=== PATIENT | male | born 1985 | race Caucasian/White ===

== ENCOUNTER 2020-11-04 03:10 | Emergency (ER) | payer OTHER ==
[~2020-11-04 03:10] MED LIST: COLCHICINE 0.60.6 MG PO; MEDROL4 MG PO
[2020-11-04 04:41] LABS: HEMOGLOBIN 16.2 gm/dl (14.0-17.5); RED BLOOD COUNT 5.12 M/UL (4.20-5.50); WHITE BLOOD COUNT 13.8 K/UL (4.5-11.0)
[2020-11-04 05:14] LABS: BUN/CREATININE RATIO 15 (0-10)
[2020-11-04] MEDS ORDERED: MEDROL DOSEPAK 24 MG PO (06:53)
[2020-11-04] MEDS ORDERED: IBUPROFEN800 MG PO (06:53)
== END 2020-11-04 07:53 | disposition home or self-care (01) ==
LOC: ER1 03:10
PROVIDERS: Emergency Medicine
DX: M10.9 Gout, unspecified (principal)
CPT/HCPCS: 36415; 72040; 73030; 73080; 80053; 83605; 84484; 85025; 85610; 85730; 86140; 87040; 93005; 96374; 99284; J1885

== ENCOUNTER 2022-01-31 20:20 | Emergency (ER) | payer OTHER ==
[~2022-01-31 20:20] MED LIST changes: +IBUPROFEN800 MG PO; +MEDROL DOSEPAK 24 MG PO
[2022-01-31] MEDS ORDERED: PREDNISONE50 MG PO (23:44)
[2022-01-31] MEDS ORDERED: NORFLEX 100 MG100 MG PO (23:44)
== END 2022-01-31 23:55 | disposition home or self-care (01) ==
LOC: ER1 20:20
DX: S39.012A Strain of muscle, fascia and tendon of lower back, initial encounter (principal); X58.XXXA Exposure to other specified factors, initial encounter
CPT/HCPCS: 72100; 99283

== ENCOUNTER 2022-04-04 13:52 | Emergency (ER) | payer OTHER ==
[~2022-04-04 13:52] MED LIST changes: +NORFLEX 100 MG100 MG PO; +PREDNISONE50 MG PO
[2022-04-04 14:27] LABS: HEMOGLOBIN 16.1 gm/dl (14.0-17.5); RED BLOOD COUNT 4.93 M/UL (4.20-5.50); WHITE BLOOD COUNT 8.3 K/UL (4.5-11.0)
[2022-04-04 14:49] LABS: BUN/CREATININE RATIO 11 (0-10)
[2022-04-04] MEDS ORDERED: PROTONIX 40 MG40 M1 PO (17:35)
== END 2022-04-04 17:45 | disposition home or self-care (01) ==
LOC: ER1 13:52
PROVIDERS: Physician Assistant
DX: R07.9 Chest pain, unspecified (principal); F17.220 Nicotine dependence, chewing tobacco, uncomplicated
CPT/HCPCS: 71045; 80053; 82550; 82553; 84484; 85025; 93005; 96374; 99285; C9113